=== PATIENT | female | born 1945 | race Caucasian/White ===

== ENCOUNTER 2017-09-06 10:39 | Emergency (ER) | payer MEDICARE, BC ==
[~2017-09-06] VITALS: Ht 160 cm; Wt 82.0 kg
[~2017-09-06 10:39] MED LIST: DOCU100T9 PO
[2017-09-06 10:45] VITALS: PULSE 82; RESP 14; TEMP 97.7; O2SAT 94
--- NOTE | 2017-09-06 11:14 | PD ---
HPI Chief Complaint: Psychiatric Symptoms Time Seen by Provider: 10:49 Travel History International Travel<30 days: No Contact w/Intl Traveler<30days: No Traveled to known affect area: No History of Present Illness HPI The patient was seen and examined in the presence of the nurse. This patient is brought in under [place] act by [place] police. Reportedly the patient is not able to care for herself. Part of the time she is wheelchair-bound and part of the time she is ambulating for short distances. She had some neighbors caring for but apparently they keep calling fire department and complaining that this lady cannot care for herself. I am told DCF is been to the house. Usually the helps the patient but he is in the hospital so the patient is not doing as well. She denies history of psychiatric problem. She denies hallucination or suicidal thought or intent to harm herself. She has gone to a doctor in 3 years. Her blood pressures 240/100. Is not having chest pain or headache. Takes no medications. She is smoking cigarettes. Denies alcohol or drug use. Symptom severity is moderate. Duration 1 week. No alleviating factors. No exacerbating factors PFSH Past Surgical History AICD: No Joint Replacement: No Pacemaker: No Social History Alcohol Use: No Tobacco Use: Yes Substance Use: No Allergies-Medications (Allergen,Severity, Reaction): Coded Allergies: No Known Allergies (Unverified , 03/19/14) Reported Meds & Prescriptions Reported Meds & Active Scripts Active Reported Docusate Sodium 100 Mg Cap 100 Mg PO DAILY PRN Review of Systems General / Constitutional: No: Fever Eyes: No: Visual changes HENT: No: Headaches Cardiovascular: No: Chest Pain or Discomfort Respiratory: No: Shortness of Breath Gastrointestinal: No: Abdominal Pain Genitourinary: No: Dysuria Musculoskeletal: Positive: Weakness, No: Pain Skin: No Rash Neurologic: Positive: Weakness Psychiatric: No: Depression Endocrine: No: Polydipsia Hematologic/Lymphatic: No: Easy Bruising Physical Exam Narrative GENERAL: Well-nourished, well-developed patient in no apparent distress. SKIN: Focused skin assessment reveals no rash and nodules. Skin is Warm and dry. A lot of crusts on her feet HEAD: Atraumatic. Normocephalic. EYES: Pupils equal and round. No scleral icterus. No injection or drainage. ENT: No nasal bleeding or discharge. Mucous membranes pink and moist. NECK: Trachea midline. No JVD. CARDIOVASCULAR: Regular rate and rhythm. No murmur appreciated. RESPIRATORY: No accessory muscle use. Clear to auscultation. Breath sounds equal bilaterally. GASTROINTESTINAL: Abdomen soft, non-tender, nondistended. Hepatic and splenic margins not palpable. MUSCULOSKELETAL: No obvious deformities. No clubbing. No cyanosis. No edema. NEUROLOGICAL: Awake and alert. No obvious cranial nerve deficits. Motor grossly within normal limits. Normal speech. PSYCHIATRIC: Appropriate mood and affect; insight and judgment seems weak. Data Data Last Documented VS Vital Signs Date Time Temp Pulse Resp B/P (MAP) Pulse Ox O2 Delivery O2 Flow Rate FiO2 09/06/17 16:08 88 141/66 (91) 09/06/17 10:45 97.7 14 94 Orders Orders Complete Blood Count With Diff (09/06/17 11:01) Comprehensive Metabolic Panel (09/06/17 11:01) Thyroid Stimulating Hormone (09/06/17 11:01) Urinalysis - C+S If Indicated (09/06/17 11:01) Iv Access Insert/Monitor (09/06/17 11:01) Psych Screen (09/06/17 11:01) Drug Screen, Random Urine (09/06/17 11:01) Alcohol (Ethanol) (09/06/17 11:01) Clonidine (Catapres) (09/06/17 11:15) Ct Brain W/O Iv Contrast(Rout) (09/06/17 ) Nifedipine (Procardia) (09/06/17 14:30) Labs Laboratory Tests Test 09/06/17 11:14 09/06/17 11:50 White Blood Count 6.4 TH/MM3 Red Blood Count 5.40 MIL/MM3 Hemoglobin 14.8 GM/DL Hematocrit 44.6 % Mean Corpuscular Volume 82.6 FL Mean Corpuscular Hemoglobin 27.4 PG Mean Corpuscular Hemoglobin Concent 33.2 % Red Cell Distribution Width 14.1 % Platelet Count 245 TH/MM3 Mean Platelet Volume 10.0 FL Neutrophils (%) (Auto) 69.4 % Lymphocytes (%) (Auto) 21.1 % Monocytes (%) (Auto) 7.2 % Eosinophils (%) (Auto) 1.6 % Basophils (%) (Auto) 0.7 % Neutrophils # (Auto) 4.5 TH/MM3 Lymphocytes # (Auto) 1.4 TH/MM3 Monocytes # (Auto) 0.5 TH/MM3 Eosinophils # (Auto) 0.1 TH/MM3 Basophils # (Auto) 0.0 TH/MM3 CBC Comment DIFF FINAL Differential Comment Blood Urea Nitrogen 14 MG/DL Creatinine 0.79 MG/DL Random Glucose 91 MG/DL Total Protein 7.7 GM/DL Albumin 3.2 GM/DL Calcium Level 8.8 MG/DL Alkaline Phosphatase 78 U/L Aspartate Amino Transf (AST/SGOT) 22 U/L Alanine Aminotransferase (ALT/SGPT) 20 U/L Total Bilirubin 0.3 MG/DL Sodium Level 140 MEQ/L Potassium Level 3.6 MEQ/L Chloride Level 103 MEQ/L Carbon Dioxide Level 27.2 MEQ/L Anion Gap 10 MEQ/L Estimat Glomerular Filtration Rate 71 ML/MIN Thyroid Stimulating Hormone 3rd Gen 7.580 uIU/ML Ethyl Alcohol Level LESS THAN 3 MG/DL Urine Color Straw Urine Turbidity CLEAR Urine pH 7.0 Urine Specific [place] 1.003 Urine Protein NEG mg/dL Urine Glucose (UA) NEG mg/dL Urine Ketones NEG mg/dL Urine Occult Blood NEG Urine Nitrite NEG Urine Bilirubin NEG Urine Urobilinogen LESS THAN 2 mg/dL Urine Leukocyte Esterase NEG Urine RBC LESS THAN 1 /hpf Urine WBC 1 /hpf Urine Squamous Epithelial Cells 3 /hpf Microscopic Urinalysis Comment CULT NOT INDICATED Urine Opiates Screen NEG Urine Barbiturates Screen NEG Urine Amphetamines Screen NEG Urine Benzodiazepines Screen NEG Urine Cocaine Screen NEG Urine Cannabinoids Screen NEG MDM Medical Decision Making Medical Screen Exam Complete: Yes Emergency Medical Condition: Yes Medical Record Reviewed: Yes Differential Diagnosis Dementia, Parkinson's, inability to care for self, accelerated hypertension Narrative Course I have reviewed the patient's electronic medical record. IV placed and labs sent I have ordered psychiatric evaluation as she is brought here under the [place] act Brain CT is negative for acute or emergent problem Gave her dose of clonidine and will reassess her blood pressure CBC and metabolic studies are normal Tox screen is negative and urine is clean Blood pressure recheck reveals 209/82 I gave a dose of Procardia and will reassess Repeat blood pressure is now 140 systolic We did a trial of ambulation. The patient moves well. She is steady with her walker. She can get up from bed and walk around with a walker fine. She seems fairly spry. She says she can get around fine and can take care of herself if she chooses to. She is not failing to thrive. She does not have inability to care for herself. In my opinion she does not require a hospital stay for those reasons. I think they were overblown. I have observed her for hours here in the ER and she can do more than she has let on. The machine adjuster leader case trim initially thought that she would not be able to take care of herself but she has not walked around with her as we have in the ER. I believe the patient can take care of herself. Possibly she was choosing not to to some degree. That then is a psychiatric issue. She is under [place] act and should get full psychiatric evaluation. However, from a medical standpoint I do not feel she needs acute hospitalization. She has mild increase in TSH but that certainly does not require anything emergent. She is very mobile with a walker and steady. She should follow-up with the primary care physician and track her blood pressures. I will likely start her on something for blood pressure just because it was quite elevated. So she is medically cleared at this point and if she is psychiatrically cleared then she should be able to get sent home. I think the benefit of a acute hospitalization is outweighed by potential risks such as C. difficile colitis and the fact that there is not really anything emergent to do. Diagnosis Primary Impression: Generalized weakness Additional Impressions: Depression Qualified Codes: F32.9 - Major depressive disorder, single episode, unspecified Accelerated hypertension Josef Barrera MD Sep 06, 2017 11:14
[2017-09-06] MEDS ORDERED: cloNIDine HCL 0.2 MG TAB PO ONE (11:15)
[2017-09-06 11:44] LABS: AUTOMATED NEUTROPHIL # 4.5 TH/MM3 (1.8-7.7); BASOPHIL % 0.7 % (0.0-2.0); EOSINOPHIL # 0.1 TH/MM3 (0-0.4); EOSINOPHIL % 1.6 % (0.0-4.0); HEMATOCRIT 44.6 % (35.0-46.0); HEMOGLOBIN 14.8 GM/DL (11.6-15.3); LYMPH % 21.1 % (9.0-44.0); LYMPHOCYTE # 1.4 TH/MM3 (1.0-4.8); MEAN CELL VOLUME 82.6 FL (80.0-100.0); MEAN CORPUSCULAR HEMOGLOBIN 27.4 PG (27.0-34.0); MEAN CORPUSCULAR HGB CONC 33.2 % (32.0-36.0); MONO % 7.2 % (0.0-8.0); MONOCYTE # 0.5 TH/MM3 (0-0.9); NEUT % 69.4 % (16.0-70.0); PLATELET COUNT 245 TH/MM3 (150-450); RED CELL DISTRIBUTION WIDTH 14.1 % (11.6-17.2); WHITE BLOOD COUNT 6.4 TH/MM3 (4.0-11.0)
[2017-09-06 12:03] VITALS: BP 216/87
[2017-09-06 12:19] LABS: ALBUMIN 3.2 GM/DL (3.4-5.0); ALT (GPT) 20 U/L (10-53); AST (GOT) 22 U/L (15-37); BICARBONATE 27.2 MEQ/L (21.0-32.0); BLOOD UREA NITROGEN 14 MG/DL (7-18); CALCIUM 8.8 MG/DL (8.5-10.1); CHLORIDE 103 MEQ/L (98-107); CREATININE 0.79 MG/DL (0.50-1.00); GLOMERULAR FILTRATION RATE 71 ML/MIN (>89); GLUCOSE,RANDOM 91 MG/DL (74-106); SODIUM (NA) 140 MEQ/L (136-145)
[2017-09-06 12:28] LABS: ALKALINE PHOSPHATASE 78 U/L (45-117); TOTAL BILIRUBIN ADULT 0.3 MG/DL (0.2-1.0); TOTAL PROTEIN 7.7 GM/DL (6.4-8.2)
[2017-09-06 12:42] LABS: BILIRUBIN, URINE NEG (NEG); BLOOD, URINE NEG (NEG); GLUCOSE,URINE NEG (NEG); KETONE, URINE NEG (NEG); NITRITE,URINE NEG (NEG); SQUAMOUS EPITHELIAL CELL URINE 3 /hpf (0-5); URINE COLOR Straw (YELLW/STRAW); URINE LEUKOCYTE ESTERASE NEG (NEG)
--- NOTE | 2017-09-06 13:29 | RADRPT ---
EXAM DATE: 09/06/2017 1:19 PM EDT AGE/SEX: 72 years / Female INDICATIONS: Altered mental status. CLINICAL DATA: This is the patient's initial encounter. Patient reports that signs and symptoms have been present for 1 day and indicates a pain score of 0/10. MEDICAL/SURGICAL HISTORY: Hypertension. None. RADIATION DOSE: 56.35 CTDI (mGy) COMPARISON: No prior exams available for comparison. TECHNIQUE: CT of the head without contrast. Using automated exposure control and adjustment of the mA and/or kV according to patient size, radiation dose was kept as low as reasonably achievable to ob tain optimal diagnostic quality images. DICOM format image data is available electronically for revi ew and comparison. FINDINGS: Cerebrum: Moderate diffuse cerebral atrophy. The ventricles are normal for degree of atrophy. No christiano dence of midline shift, mass lesion, hemorrhage or acute infarction. No extraaxial fluid collections are seen. Posterior Fossa: The cerebellum and brainstem are intact. The 4th ventricle is midline. The cerebe llopontine angle is unremarkable. Extracranial: The visualized portion of the orbits is intact. Skull: The calvaria is intact. No evidence of skull fracture. CONCLUSION: 1. Senescent changes without acute intracranial abnormality. Electronically signed by: Miguel Renteria MD 09/06/2017 1:28 PM EDT
[2017-09-06 14:22] VITALS: BP 209/82
[2017-09-06] MEDS ORDERED: NIFEdipine 20 MG CAP PO ONE (14:30)
[2017-09-06 15:30] VITALS: BP 211/88; PULSE 80
[2017-09-06 16:08] VITALS: BP 141/66; PULSE 88
[2017-09-06] MEDS ORDERED: LISI-515 PO (18:22)
--- NOTE | 2017-09-06 18:24 | PD ---
Data Data Last Documented VS Vital Signs Date Time Temp Pulse Resp B/P (MAP) Pulse Ox O2 Delivery O2 Flow Rate FiO2 09/06/17 16:08 88 141/66 (91) 09/06/17 10:45 97.7 14 94 Orders Orders Complete Blood Count With Diff (09/06/17 11:01) Comprehensive Metabolic Panel (09/06/17 11:01) Thyroid Stimulating Hormone (09/06/17 11:01) Urinalysis - C+S If Indicated (09/06/17 11:01) Iv Access Insert/Monitor (09/06/17 11:01) Psych Screen (09/06/17 11:01) Drug Screen, Random Urine (09/06/17 11:01) Alcohol (Ethanol) (09/06/17 11:01) Clonidine (Catapres) (09/06/17 11:15) Ct Brain W/O Iv Contrast(Rout) (09/06/17 ) Nifedipine (Procardia) (09/06/17 14:30) Diet Regular Basic (09/06/17 Dinner) Ed Discharge Order (09/06/17 18:22) Labs Laboratory Tests Test 09/06/17 11:14 09/06/17 11:50 White Blood Count 6.4 TH/MM3 Red Blood Count 5.40 MIL/MM3 Hemoglobin 14.8 GM/DL Hematocrit 44.6 % Mean Corpuscular Volume 82.6 FL Mean Corpuscular Hemoglobin 27.4 PG Mean Corpuscular Hemoglobin Concent 33.2 % Red Cell Distribution Width 14.1 % Platelet Count 245 TH/MM3 Mean Platelet Volume 10.0 FL Neutrophils (%) (Auto) 69.4 % Lymphocytes (%) (Auto) 21.1 % Monocytes (%) (Auto) 7.2 % Eosinophils (%) (Auto) 1.6 % Basophils (%) (Auto) 0.7 % Neutrophils # (Auto) 4.5 TH/MM3 Lymphocytes # (Auto) 1.4 TH/MM3 Monocytes # (Auto) 0.5 TH/MM3 Eosinophils # (Auto) 0.1 TH/MM3 Basophils # (Auto) 0.0 TH/MM3 CBC Comment DIFF FINAL Differential Comment Blood Urea Nitrogen 14 MG/DL Creatinine 0.79 MG/DL Random Glucose 91 MG/DL Total Protein 7.7 GM/DL Albumin 3.2 GM/DL Calcium Level 8.8 MG/DL Alkaline Phosphatase 78 U/L Aspartate Amino Transf (AST/SGOT) 22 U/L Alanine Aminotransferase (ALT/SGPT) 20 U/L Total Bilirubin 0.3 MG/DL Sodium Level 140 MEQ/L Potassium Level 3.6 MEQ/L Chloride Level 103 MEQ/L Carbon Dioxide Level 27.2 MEQ/L Anion Gap 10 MEQ/L Estimat Glomerular Filtration Rate 71 ML/MIN Thyroid Stimulating Hormone 3rd Gen 7.580 uIU/ML Ethyl Alcohol Level LESS THAN 3 MG/DL Urine Color Straw Urine Turbidity CLEAR Urine pH 7.0 Urine Specific [place] 1.003 Urine Protein NEG mg/dL Urine Glucose (UA) NEG mg/dL Urine Ketones NEG mg/dL Urine Occult Blood NEG Urine Nitrite NEG Urine Bilirubin NEG Urine Urobilinogen LESS THAN 2 mg/dL Urine Leukocyte Esterase NEG Urine RBC LESS THAN 1 /hpf Urine WBC 1 /hpf Urine Squamous Epithelial Cells 3 /hpf Microscopic Urinalysis Comment CULT NOT INDICATED Urine Opiates Screen NEG Urine Barbiturates Screen NEG Urine Amphetamines Screen NEG Urine Benzodiazepines Screen NEG Urine Cocaine Screen NEG Urine Cannabinoids Screen NEG MDM Supervised Visit with [facility]: No Narrative Course Instructions as follows Diagnosis Primary Impression: Generalized weakness Additional Impressions: Accelerated hypertension Depression Qualified Codes: F32.9 - Major depressive disorder, single episode, unspecified Additional Instruction: The patient was advised to follow up with their physician and return if they worsen. Use walker to get around Check and record blood pressure daily Med/Other Pt SpecificInfo: Prescription(s) given Scripts Lisinopril (Lisinopril) 20 Mg Tab 20 MG PO DAILY, #30 TAB 0 Refills Prov: Josef Barrera MD 09/06/17 Disposition: 01 DISCHARGE HOME Condition: Stable Josef Barrera MD Sep 06, 2017 18:24
--- NOTE | 2017-09-06 18:36 | PD ---
History of Present Illness Chief Complaint: Psychiatric Symptoms Time Seen by Provider: 18:00 Travel History International Travel<30 Days: No Contact w/Intl Traveler<30days: No Known affected area: No Legal Status Legal Status: Involuntary [place] Act Signed By: Anibal Brody [place] Act Comment: Officer Tristan Charles number [id number] Anibal GARCÍA History of Present Illness: Patient is 6-year-old female who was placed under a [place] act by [place] [employer]. [place] act states," physically unable to care for herself. Refusing to eat. Mentally here and then not. Focused on then forgets what she is doing. Refused voluntary examination." Patient's of 38 years was just admitted to [facility] and then transferred her [facility] and diagnosed with been cancerous brain tumor. Family has been told that he has approximately 6 months to live. Vision and have 4 children between them and they are all out of state. All the children are involved and understand the seriousness of their father's diagnosis. Patient states that she has services in the home. She does use a walker for ambulating patient. She stopped smoking 12 years ago and started smoking 5 days ago. 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 She has had wrist surgeries and a left hip surgery 4 years ago. She states that she is eating and that she is drinking okay. She states that she is stressed about the recent diagnosis of her . She endorses no suicidal or homicidal ideation. She feels that with the help of her family she can get the resources that she needs and on an outpatient basis. Chart reviewed and discussed with nurse. Patient is in C 28 in the emergency department. She is alert and oriented 4. She ambulates extremely slowly with the use of a walker. Her recent and remote memory are intact. Her insight and judgment are good. She speaks with a normal tone and rhythm. She is well kept and overweight. She endorses no suicidal or homicidal ideations. Patient is at low risk for harm to self or others. She is very focused on spending as much time as she can with her . Based on the patient's presentation and no endorsement of self-harm will lift this [place] act. DX: Depression and anxiety PFSH Past Surgical History AICD: No Joint Replacement: No Pacemaker: No Psychiatric History Psychiatric History No past psychiatric care. Hx Psychiatric Treatment: Patient denies History of Inpatient Treatment: No Social History Hx Alcohol Use: No Hx Tobacco Use: Yes Hx Substance Use: No Hx of Substance Use Treatment: No Allergies-Medications (Allergen,Severity, Reaction): Coded Allergies: No Known Allergies (Unverified , 03/19/14) Reported Meds & Prescriptions Reported Meds & Active Scripts Active Lisinopril 20 Mg Tab 20 Mg PO DAILY Reported Docusate Sodium 100 Mg Cap 100 Mg PO DAILY PRN Mental Status Examination Appearance: Appropriate Consciousness: Alert Orientation: x4 Motor Activity: Other (uses a walker ) Language: Adequate Fund of Knowledge: Adequate Attention and Concentration: Adequate Memory: Unremarkable Mood: Appropriate Affect: Appropriate Thought Process & Associations: Intact Thought Content: Appropriate Hallucination Type: None Delusion Type: None Suicidal Ideation: No Suicidal Plan: No Suicidal Intention: No Homicidal Ideation: No Homicidal Plan: No Homicidal Intention: No Insight: Adequate Judgment: Adequate MDM Medical Decision Making Medical Record Reviewed: Yes Assessment/Plan Patient is a 72-year-old female who was placed under a [place] act by [place] [employer]. She called the police department asking for help. Diagnosed with a cancerous brain tumor and is in [facility]. He was told that he has 6 months to live. She has engaged her 4 children that are out of state regarding her 's condition. She currently does get some help at home. She ambulates well with the assistance of a walker. He is eating and drinking. She states that she is very stressed depressed and has some anxiety. Patient endorses no suicidal homicidal ideations. She does not meet [place] act criteria. She is at low risk for self-harm. The list [place] act so that she may join her and spent time with him. Orders Orders Complete Blood Count With Diff (09/06/17 11:01) Comprehensive Metabolic Panel (09/06/17 11:01) Thyroid Stimulating Hormone (09/06/17 11:01) Urinalysis - C+S If Indicated (09/06/17 11:01) Iv Access Insert/Monitor (09/06/17 11:01) Psych Screen (09/06/17 11:01) Drug Screen, Random Urine (09/06/17 11:01) Alcohol (Ethanol) (09/06/17 11:01) Clonidine (Catapres) (09/06/17 11:15) Ct Brain W/O Iv Contrast(Rout) (09/06/17 ) Nifedipine (Procardia) (09/06/17 14:30) Diet Regular Basic (09/06/17 Dinner) Ed Discharge Order (09/06/17 18:22) Results Vital Signs Date Time Temp Pulse Resp B/P (MAP) Pulse Ox O2 Delivery O2 Flow Rate FiO2 09/06/17 16:08 88 141/66 (91) 09/06/17 15:30 80 211/88 (129) 09/06/17 14:22 209/82 (124) 09/06/17 12:03 216/87 (130) 09/06/17 10:45 97.7 82 14 94 Laboratory Tests Test 09/06/17 11:14 09/06/17 11:50 White Blood Count 6.4 Red Blood Count 5.40 Hemoglobin 14.8 Hematocrit 44.6 Mean Corpuscular Volume 82.6 Mean Corpuscular Hemoglobin 27.4 Mean Corpuscular Hemoglobin Concent 33.2 Red Cell Distribution Width 14.1 Platelet Count 245 Mean Platelet Volume 10.0 Neutrophils (%) (Auto) 69.4 Lymphocytes (%) (Auto) 21.1 Monocytes (%) (Auto) 7.2 Eosinophils (%) (Auto) 1.6 Basophils (%) (Auto) 0.7 Neutrophils # (Auto) 4.5 Lymphocytes # (Auto) 1.4 Monocytes # (Auto) 0.5 Eosinophils # (Auto) 0.1 Basophils # (Auto) 0.0 CBC Comment DIFF FINAL Differential Comment Blood Urea Nitrogen 14 Creatinine 0.79 Random Glucose 91 Total Protein 7.7 Albumin 3.2 Calcium Level 8.8 Alkaline Phosphatase 78 Aspartate Amino Transf (AST/SGOT) 22 Alanine Aminotransferase (ALT/SGPT) 20 Total Bilirubin 0.3 Sodium Level 140 Potassium Level 3.6 Chloride Level 103 Carbon Dioxide Level 27.2 Anion Gap 10 Estimat Glomerular Filtration Rate 71 Thyroid Stimulating Hormone 3rd Gen 7.580 Ethyl Alcohol Level LESS THAN 3 Urine Color Straw Urine Turbidity CLEAR Urine pH 7.0 Urine Specific [place] 1.003 Urine Protein NEG Urine Glucose (UA) NEG Urine Ketones NEG Urine Occult Blood NEG Urine Nitrite NEG Urine Bilirubin NEG Urine Urobilinogen LESS THAN 2 Urine Leukocyte Esterase NEG Urine RBC LESS THAN 1 Urine WBC 1 Urine Squamous Epithelial Cells 3 Microscopic Urinalysis Comment CULT NOT INDICATED Urine Opiates Screen NEG Urine Barbiturates Screen NEG Urine Amphetamines Screen NEG Urine Benzodiazepines Screen NEG Urine Cocaine Screen NEG Urine Cannabinoids Screen NEG Diagnosis Primary Impression: Depression Additional Impression: Anxiety Additional Instructions: The patient was advised to follow up with their physician and return if they worsen. Use walker to get around Check and record blood pressure daily Prescriptions Lisinopril (Lisinopril) 20 Mg Tab 20 MG PO DAILY, #30 TAB 0 Refills Prov: Josef Barrera MD 09/06/17 Disposition: 01 DISCHARGE HOME Condition: Stable Problem Qualifiers Primary Impression: Depression Qualified Codes: F32.9 - Major depressive disorder, single episode, unspecified Alley Wagner Sep 06, 2017 18:36
== END 2017-09-06 21:13 | disposition home or self-care (01) ==
LOC: NEPC 10:39
DX: R53.1 Weakness (principal); F32.9 Major depressive disorder, single episode, unspecified; I10 Essential (primary) hypertension; F41.9 Anxiety disorder, unspecified; F17.210 Nicotine dependence, cigarettes, uncomplicated; Z79.899 Other long term (current) drug therapy
CPT/HCPCS: 70450; 80053; 80307; 81001; 84443; 85025; 99284